=== PATIENT | male | born 2000 | race Caucasian/White ===

== ENCOUNTER 2018-08-16 09:20 | Day surgery (SDC) | payer OTHER ==
[2018-08-13 13:54] LABS: Absolute Lymphocytes (CBC) 1.3 K/uL (0.7-4.9); Absolute Monocytes 0.3 K/uL (0.1-1.3); Absolute Neutrophil 3.3 K/uL (1.8-8.0); Basophils % 0.7 % (0-1.3); Eosinophils % 1.6 % (0-4.4); Hematocrit 44.4 % (39.6-49.0); Lymphocytes % 25.8 % (15.3-44.8); MPV 9.4 fL (7.6-11.3); Monocytes % 6.8 % (3.3-12.3); RBC Red Blood Cell Count 5.01 M/uL (4.33-5.43)
[2018-08-16] MEDS ORDERED: Ringers Lactate 1,000 ML IV ONE (10:17)
[2018-08-16] MEDS ORDERED: CEFAZOLIN/SWI 1gm 1 GM/10 ML SYR ONE (10:17)
[2018-08-16] MEDS ORDERED: PROPOFOL 200 MG/20 ML VIAL IV ONE (11:19)
[2018-08-16] MEDS ORDERED: FENTANYL CITR 100 MCG/2 ML ONE ×2 (11:19→12:24)
[2018-08-16] MEDS ORDERED: LIDOCAINE 2% MPF 5 ML VIAL ONE (11:20)
[2018-08-16] MEDS ORDERED: ONDANSETRON 4 MG/2 ML VIAL ONE (11:22)
[2018-08-16] MEDS ORDERED: MIDAZOLAM HCL 2 MG/2 ML INJ ONE (11:23)
[2018-08-16] MEDS ORDERED: BUPIVACAINE 0.5% PF 10 ML VIAL ONE (11:38)
--- NOTE | 2018-08-16 12:26 | P.BOP ---
Preoperative diagnosis: thrombosed prolapsed hemorrhoid Postoperative diagnosis: same Primary procedure: EUA, ANoscopy, rigid proctoscopy, external hemorrhoidectomy ( one bundle) Estimated blood loss: <5cc Specimen: hemmorhoid Findings: see dicta Anesthesia: General Complications: None Drain(s): Other (surgicel) Transferred to: Recovery Room Condition: Good
[2018-08-16] MEDS: HYDROMORPHONE HCL 1 MG/ML INJ ONE ×4 (12:57→13:13)
[2018-08-16] MEDS ORDERED: HYDROCODONE/APAP 7.5/325 MG TAB ONE (14:00)
--- NOTE | 2018-08-16 23:39 | OP ---
Date of Procedure: 08/16/2018 Surgeon: Kael Mejia MD Preoperative Diagnosis: Thrombosed prolapsed hemorrhoid. Postoperative Diagnosis: Thrombosed prolapsed hemorrhoid. Procedure: Examination under anesthesia; anoscopy; rigid proctoscopy; external hemorrhoidectomy, one bundle. Specimen: Hemorrhoids. Findings: Right posterolateral thrombosed hemorrhoid. Anesthesia: General plus local. Indications: This is the case of a male, who comes to us with perianal tenderness and mass, found to have a thrombosed prolapsed hemorrhoid with tenderness. The patient had multiple treatments before including diet change including creams, has not improved. He wanted that excised. The benefits, alt ernatives, and risks of examination under anesthesia, anoscopy, rigid proctoscopy, possible hemorrhoi dectomy were fully explained to the patient which include but are not limited to infection, bleeding, damage to adjacent structures, anesthesia complication, anal stricture, anal incontinence, ND, and e sofie . He also understands this may not relieve any symptoms and he might need more than one adan gical intervention. They understood, signed a consent. Description Of Procedure: The patient was brought to the operating room, placed in supine position. Anesthesia was achieved without complication. The patient was placed in lithotomy position with a p viji protection. Rectal examination was done followed by a rigid proctoscopy all the way up to abou t 15 cm. No masses seen. We have external and internal hemorrhoids. We have this external prolapse d hemorrhoid in right posterolateral region. After that, we placed an anoscope. Once again, no mass es seen. So, with anoscope with a window on the side, we proceeded to carefully open the anoderm to separate the hemorrhoidal plexus from the sphincter to protect the sphincter. Transected the hemorrh oidal plexus with a Harmonic Scalpel. Approximated the anoderm with a chromic with previously inject ed local anesthetic and preserved center muscle. Surgicel was placed over the area; no bleeding. An oscope was removed. The patient tolerated the procedure well. The patient was sent to recovery in s table condition. Disposition: Home. Medications: Include Vicodin q.4 hours p.r.n. pain. He was advised to use Colace [id number], Zofran 4 every 4 p.r.n. nausea, Bactrim DS p.o. b.i.d. Sitz bath 4 times a day and after every bowel movement. KHRIS/NIRANJAN Voice ID: [id number] Report ID: [id number]
== END 2018-08-16 14:08 | disposition home or self-care (01) ==
LOC: OR 09:20
PROVIDERS: ATTEND Surgery
PROC: 0DJD8ZZ Inspection of Lower Intestinal Tract, Via Natural or Artificial Opening Endoscopic (ICD-10-PCS; 2018-08-16)
PROC: 06BY0ZC Excision of Hemorrhoidal Plexus, Open Approach (ICD-10-PCS; principal; 2018-08-16 11:30)
DX: K64.5 Perianal venous thrombosis (principal); K64.8 Other hemorrhoids
CPT/HCPCS: 36415; 80048; 85025; 88304; J0690; J1170; J2250; J2405; J2704; J3010